=== PATIENT | male | born 1985 | race Caucasian/White ===

== ENCOUNTER 2021-09-16 07:27 | Emergency (ER) | payer OTHER ==
[2021-09-16] MEDS ORDERED: BACTROBAN OINT22 GM EXT (08:28)
[2021-09-16] MEDS ORDERED: CEPHALEXIN500 M1 PO (08:28)
== END 2021-09-16 08:57 | disposition home or self-care (01) ==
LOC: ER1 07:27
DX: S61.245A Puncture wound with foreign body of left ring finger without damage to nail, initial encounter (principal); W45.8XXA Other foreign body or object entering through skin, initial encounter
CPT/HCPCS: 99283